=== PATIENT | female | born 1990 | race Caucasian/White ===

== ENCOUNTER 2018-02-21 11:50 | Inpatient (IN) ==
--- NOTE | 2018-02-21 12:10 | PDOC ---
Headache HPI - General Chief Complaint: Headache Stated Complaint: Migraine since sunday Date Seen by Provider: 02/21/18 Time Seen by Provider: 12:01 Source: POSITIVE: Patient Exam Limitations: POSITIVE: No limitations Nurse's Notes Reviewed & Considered: Yes - History of Present Illness Initial Comments: Patient presents to ED with complaint of headache. Patient states that she has history of migraines. Patient states today's headache is the "worst of her life". Patient has seen her local nurse practioner 3 days in a row now and was referred to ED today. patient was given toradol and IM phenergan for the past two days for her headache with minimal relief. Patient states the headache started in frontal region behind her right eye and has now progressed into her occipital region. She is also complaining of neck pain today. She denies fevers/chills. She does report photophobia. Denies R/C/EA/ST. Denies CP/SOB. Denies cough. Reports nausea. Body Location Affected: REPORTS: Head Associated Symptoms: DENIES: Fever, Chills Any Prior Injuries Related to Current Complaint?: No (no trauma) - Patient Home Medications Home Medications: Home Medications Levothyroxine Sodium 0.5 tab PO DAILY tab 11/22/15 - Patient Allergies Allergies/Adverse Reactions: Allergies Allergy/AdvReac Type Severity Reaction Status Date / Time pseudoephedrine HCl Allergy Severe CHEST PAIN Verified 02/21/18 20:33 [From Sudafed] OR TIGHTNESS Past Medical History - ronyen HEENT History: Denies History Cardiovascular History: Denies History Respiratory History: Denies History Gastrointestinal History: Denies History Genitourinary History: Denies History Endocrine History: Hypothyroidism Musculoskeletal History: Denies History Neurological History: Denies History Blood Disorders: Denies History Psychiatric History: Denies History History of Sexually Transmitted Diseases: No Female Reproductive History: Endometriosis Cancer History: Denies History History of MDRO: No History of Other Communicable Diseases: No Alcohol Use: None In the Past 12 Months, Have Used or Abuse Any Substance: None Previous Surgical History: Yes Type / Date of Surgery: 11/09/15 LEFT SHOULDER SLAP REPAIR/T&A/ MADALYN/ ENDOMETRIAL ABLATION X 2/L SHOULDER SCOPE/EGD Anesthesia Reactions: No Malignant Hyperthermia: No Significant Family History: Heart disease, Cancer, Diabetes ROS - Limitations ROS Limitations: No Limitations Constitution: DENIES: Chills, Fever, Diaphoresis, Weakness Cardiovascular: REPORTS: Denies Cardiac Symptoms Respiratory: REPORTS: Denies Resp Symptoms Neurological: REPORTS: Headache, Other (photophobia. Phonophobia). DENIES: Confusion, Dizziness, Seizure Activity, Facial Asymmetry, Dysphagia Gastrointestinal: REPORTS: Nausea, Vomitting. DENIES: Abdominal Pain, Diarrhea Endocrine: REPORTS: Denies Symptoms Musculoskeletal: REPORTS: Denies MS Symptoms Genitourinary: REPORTS: Denies Symptoms Eyes: REPORTS: Denies Symptoms ENT: REPORTS: Denies Symptoms Skin: REPORTS: Denies Skin Symptoms Lympathic: REPORTS: Denies Lympathic Symptoms Immunologic: POSITIVE: Denies Symptoms Psychiatric: POSITIVE: Anxiety. NEGATIVE: Depression, Suicidal Thoughts Headache Exam - General Appearance General Appearance: POSITIVE: Alert, Cooperative, Moderate Distress - HEENT Head / Face: POSITIVE: Atraumatic, Normal Inspection, No Facial Swelling. NEGATIVE: Head Injury, Ecchymosis, Swelling, Tenderness Eyes: POSITIVE: Inspection Normal, PERRL, EOM's Intact, Eyelids Uninjured, No Nystagmus, No Globe Trauma Ears: POSITIVE: Ears Normal Inspection, TM Normal Inspection Nose: POSITIVE: Inspection Normal, No Apparent Trauma, Nares Normal, No CSF Leak Oropharynx: POSITIVE: External Inspection Nml, Pharynx Inspect. Nml, Airway Intact, Voice Normal, No Oral Injury, Lips Normal, Gums Normal, No Drooling, No Thrush, Dry Mucous Membranes Dental: POSITIVE: No Dental Injury - Pupil Size Pupil Size: 4 mm: Bilateral - Neck Neck: POSITIVE: Normal Inspection, Stiff Neck. NEGATIVE: Meningismus - Respiratory / CVS Respiratory / CVS: POSITIVE: Chest Non-Tender, No Respiratory Distress, Heart Sounds Normal, Regular Rate/Rhythm, Breath Sounds Normal Peripheral Pulses: Radial (R): 2+, Radial (L): 2+, Dorsalis-pedis (R): 2+, Dorsalis-pedis (L): 2+ - Abdomen Abdomen: Soft: (All Quadrants), Normal Bowel Sounds: (All Quadrants), Denies Tenderness: (All Quadrants), No Splenomegaly: (All Quadrants), No Hepatomegaly: (All Quadrants), No Guarding: (All Quadrants), No Rebound: (All Quadrants) - Skin Skin: POSITIVE: Intact - Extremities Extremity: Non-Tender: (All Extremities), Normal ROM: (All Extremities), Normal Inspection: (All Extremities) - Neuro / Psych Higher Functions: POSITIVE: Alert, Oriented x3, Normal Speech, Mood Appropriate, Affect Appropriate Cranial Nerves: POSITIVE: Normal As Tested Cerebellar: POSITIVE: Normal As Tested Sensorimotor: POSITIVE: No Motor Deficits, No Sensory Deficits, Reflexes Normal. NEGATIVE: Weakness Procedure - Lumbar Puncture Risks, Benefits, & Alternatives Discussed: Yes Parent / Guardian Consent Obtained: Yes (patient's mother was present for consent and consented to procedure along w) Lumbar Puncture Technique: POSITIVE: Lying, Sterile Technique, L3-4 Lumbar Puncture Color: POSITIVE: Colorless, Clear Lumbar Puncture Lab Results Reviewed: Yes Procedure Note:: The L3-L4 interspace was prepped and draped in the usual sterile fashion using Betadine. The space was anesthetized with 1% lidocaine without epinephrine. After adequate anesthesia was achieved a 22-gauge spinal needle was entered into the spinal column on the first pass. Immediately CSF was returned. Opening pressure was obtained. 4 samples were obtained. Stylette was replaced and the needle was withdrawn. Sterile dressing was placed. Patient tolerated procedure well. Opening pressure was 9 mmHg. Patient was left in supine position for 1 hour after lumbar puncture. Headache Progress - Results Reviewed by me Xrays/CTs/US Reviewed by me: Yes Discussed with Radiologist: No Radiology Findings: Normal Head CT. No ICH. No aneursym. Lab Results Reviewed by Me: Yes CBC and BMP: 02/21/18 12:15 02/21/18 12:15 Lab Results:: Laboratory Results 02/21/18 02/21/18 02/21/18 12:15 12:15 12:15 WBC 12.01 H RBC 4.83 Hgb 14.9 Hct 43.9 MCV 90.9 MCH 30.8 MCHC 33.9 RDW Std Deviation 41.2 RDW Coeff of Ade 12.6 Plt Count 245 MPV 11.1 Immature Gran % (Auto) 0.2 Neut % (Auto) 71.5 Lymph % (Auto) 19.8 Harper % (Auto) 7.2 Eos % (Auto) 1.1 Baso % (Auto) 0.2 Immature Gran # (Auto) 0.02 Neut # (Auto) 8.59 Lymph # (Auto) 2.38 Harper # (Auto) 0.87 H Eos # (Auto) 0.13 Baso # (Auto) 0.02 WBC Morphology Comment Normal morphology Plt Morphology Comment Normal morphology RBC Morph Comment Normal morphology Sodium 142 Potassium 4.0 Chloride 105 Carbon Dioxide 28 Anion Gap 9 BUN 14 Creatinine 0.7 Estimated GFR > 60 BUN/Creatinine Ratio 20.00 Glucose 89 Calculated Osmolality 293.0 H Calcium 9.5 Serum HCG, Qual Negative CSF Volume CSF Appearance CSF Color CSF WBC CSF RBC CSF Neutrophils CSF Lymphocytes CSF Mononuclear WBCs CSF Glucose CSF Total Protein HIV 1&2 Antibody Rapid HIV P24 Antigen 02/21/18 02/21/18 12:15 16:55 WBC RBC Hgb Hct MCV MCH MCHC RDW Std Deviation RDW Coeff of Ade Plt Count MPV Immature Gran % (Auto) Neut % (Auto) Lymph % (Auto) Harper % (Auto) Eos % (Auto) Baso % (Auto) Immature Gran # (Auto) Neut # (Auto) Lymph # (Auto) Harper # (Auto) Eos # (Auto) Baso # (Auto) WBC Morphology Comment Plt Morphology Comment RBC Morph Comment Sodium Potassium Chloride Carbon Dioxide Anion Gap BUN Creatinine Estimated GFR BUN/Creatinine Ratio Glucose Calculated Osmolality Calcium Serum HCG, Qual CSF Volume 4ml CSF Appearance Clear CSF Color Colorless CSF WBC 0.011 H CSF RBC 0.001 CSF Neutrophils 0 CSF Lymphocytes 100 CSF Mononuclear WBCs 0 CSF Glucose 46 L CSF Total Protein 115 H HIV 1&2 Antibody Rapid Negative HIV P24 Antigen Negative - Patient's Progress Pain Medication Addressed: POSITIVE: Yes School/Work Release Addressed: POSITIVE: Not Applicable Re-Examine Comment: Patient continues to complain of headache despite initial migraine cocktail therefore patient was given IV dilaudid. This did minimally help her headache. Labs showed mild leukocytosis. Re-Examine Comment: Patient continues to complain of headache despite narcotic treatment. She is also complaining of neck pain and stiffness. She has trouble putting her chin on her chest. Therefore I recommended LP. I discussed risks and benefits and she consented to procedure. LP went smoothly and CSF was easily obtained and sent for analysis. Patient requested more pain medication and was given another dose of dilaudid. She became hypoxic after this dose and was placed on oxygen. After a short time she was again complaining of headache pain and was therefore given IV toradol. Re-Examine Comment: Case discussed with Dr. Cutler of infectious disease at [facility]. He recommended enterovirus & HSV csf testing. He also recommended HIV testing. He recommended treatment with acyclovir, rocephin 2 gm every 12 hours and vancomycin 15mg/kg. He recommended continuing antibiotics for 1st 48 hours of cultures and if no bacterial source grew that the antibiotics could be discontinued after that time. Status: POSITIVE: Unchanged MDM / ED Course: Patient presented the emergency Department complaints of headache. She has a history of migraines and was treated as an outpatient for the past 2 days. This has been the worst headache of her life and therefore a head CT with and without contrast was performed. CT the head showed no acute findings. Labs showed mild leukocytosis. The patient did not respond to traditional migraine treatments and was therefore given narcotics. She continued to complain of headache and there is therefore given Dilaudid. She is complaining of neck pain with her headache and has difficulty moving her head and placing her chin on her chest. I subsequently recommended lumbar puncture. I performed consent with patient. I subsequently performed a lumbar puncture and patient tolerated this well. Opening pressure was 9 mmHg. And CSF was sent for analysis. I reviewed CSF findings which showed elevated white blood cell count at 110 which was all lym phocytes. Patient's glucose was decreased and protein was increased in the CSF. This was consistent with viral meningitis. I subsequently discussed the case with Dr. Bray, hospitalist, who requested that I consult infectious disease at [facility]. I subsequently discussed the case with Dr. Cutler of the infectious disease service. He recommended the patient have enterovirus and HSV testing of the CSF. He recommended HIV testing. He recommended giving the patient acyclovir and Rocephin 2 g every 12 and vancomycin 15 mg/kg. He recommended continuing antibiotic therapy for 48 hours of growth of the CSF culture. If no bacteria grew out of the CSF culture at 48 hours the antibiotics could be stopped at that time. The case was further discussed with Dr. Bray and the patient was subsequently admitted to the medical floor and stable but guarded condition. She expressed understanding of her results and recommendation for admission and was in agreement with plan. Her mother also accompanied her today and also express understanding of results and plan. - Consult Consult (If Yes, Name of Consulting MD & Time Called): Yes (Dr Bray @ [phone]) Consulting MD will see pt:: POSITIVE: Other (Requested I consult infectious disease prior to admission) Patient Care Time - Estimated PCT Patient Care Time (In Minutes): 120 Critical Care Note - Critical Care Note Total Time (mins): 35 (excluding any other billable procedures) Critical Care: NOUGAT [employer] MACHINE Failure Risk, Life Threatening Scenario, Limb Threatening Scenario, Multiple Organ Systems Threatened / At Risk, Interpretation of Labs - Management Adjusted Based on Results History Source: Patient, Family Discharge Clinical Impression: Headache, Meningitis, viral, Nausea & vomiting, Dehydration Discharge Disposition: Admit to Inpatient Condition: Stable Follow Up With: CASPER CASTILLO [Primary Care Provider] - Care Transferred To: Dr. Bray Date Decision to Admit to Inpatient: 02/21/18 Time Decision to Admit to Inpatient: 18:49
[2018-02-21] MEDS ORDERED: Sodium Chloride 0.9% 1,000 ML PRIMARY IV ONE (12:30)
[2018-02-21] MEDS ORDERED: PROMETHAZINE 25 MG/1 ML VIAL IM ONE (12:30)
[2018-02-21] MEDS ORDERED: DEXAMETHASONE PF 10 MG/1 ML VIAL IVP ONE (12:30)
[2018-02-21] MEDS ORDERED: diphenhydrAMINE 50 MG/1 ML VIAL IVP ONE (12:30)
[2018-02-21 12:36] LABS: BASOPHILS # (AUTO) 0.02 10*3/UL; BASOPHILS % (AUTO) 0.2 % (0-1); EOSINOPHILS # (AUTO) 0.13 10*3/UL; EOSINOPHILS % (AUTO) 1.1 % (0-8); Hematocrit [HCT] 43.9 % (37.0-47.0); Hemoglobin [HGB] 14.9 g/dL (12.0-16.0); LYMPHOCYTES # (AUTO) 2.38 10*3/uL; MEAN CORPUSCULAR HEMOGLOBIN 30.8 PG (27-31); MEAN CORPUSCULAR HGB CONC 33.9 g/dL (33-37); MEAN CORPUSCULAR VOLUME 90.9 FL (81-99); MEAN PLATELET VOLUME 11.1 FL (7.4-12.2); MONOCYTES # (AUTO) 0.87 10*3/UL (0.3-0.8); MONOCYTES % (AUTO) 7.2 % (5-15); NEUTROPHILS # (AUTO) 8.59 10*3/UL; NEUTROPHILS % (AUTO) 71.5 % (50-80); RED BLOOD COUNT 4.83 10^6/uL (4.20-5.40)
[2018-02-21 12:37] LABS: PLATELET MORPHOLOGY COMMENT NORMAL MORPHOLOGY (NORM); RBC MORPHOLOGY COMMENT NORMAL MORPHOLOGY (NORM); WBC MORPHOLOGY COMMENT NORMAL MORPHOLOGY (NORM)
[2018-02-21 12:42] LABS: BLOOD UREA NITROGEN 14 mg/dL (7-22)
[2018-02-21] MEDS ORDERED: HYDROmorphone 2 MG/1 ML IVP ONE ×3 (14:40→20:10)
--- NOTE | 2018-02-21 14:40 | DI ---
CT HEAD SCAN WITHOUT AND WITH IV CONTRAST, 02/21/2018 12:30 PM : Clinical History: The patient experienced the worst headache in her life. Previous Exam: None at this facility. Technique: Performed from the foramen magnum to vertex without and with IV contrast. Contrast Volume: 75 mL of Isovue 300. 4th Ventricle: Normal. 3rd Ventricle: Normal. Lateral Ventricles: Normal. Cerebrum: Normal. No evidence of an acute subarachnoid or intraparenchymal hemorrhage on the noncontr ast scans. No enhancing lesion. [place]: The left vertebral artery is the dominant vessel. There is no aneurysm arising from the AICA or PICA branches and there is no basilar tip aneurysm. No discernible posterior communicati ng arteries are identified. The anterior communicating artery is atretic but normal. The A1-A2 and M1 -M3 branches bilaterally are normal. No aneurysms are identified. Cerebellum: Normal. No cerebellopontine angle mass. No enhancing lesion. Brainstem: Normal. No enhancing lesion. Atrophy: No atrophy. Extracerebral Mantles/Midline Shift: No extracerebral lesion or midline shift. No enhancing dural les ion. Sinuses: Normal. Skull: Intact. READIN. Normal pre- and post-contrast enhanced CT head scan. There is no evidence of an acute intracrania l hemorrhagic focus. 2. Normal [place]. No aneurysm is identified
[2018-02-21 17:39] LABS: APPEARANCE, CSF CLEAR (CLEAR); COLOR, CSF COLORLESS (COLOR)
[2018-02-21] MEDS ORDERED: cefTRIAXone Inj 2 GM in Sodium Chloride 0.9% 100 ML IV ONE (18:43)
[2018-02-21] MEDS ORDERED: KETOROLAC 15 MG/1 ML VIAL IVP ONE (18:45)
[2018-02-21 19:15] LABS: HIV ANTIBODY NEGATIVE (N); HIV-1 P24 ANTIGEN NEGATIVE (N)
[2018-02-21] MEDS ORDERED: ONDANSETRON 4 MG/2 ML VIAL IVP PRN (21:12)
[2018-02-21] MEDS ORDERED: LIDOCAINE W/ SODIUM BICARB 0.5 ML SYR SUBD PRN (21:12)
[2018-02-21] MEDS ORDERED: CALCIUM CARBONATE 500 MG (TUMS) CHEWABLE TABLET PO PRN (21:12)
[2018-02-21] MEDS ORDERED: ACETAMINOPHEN 325 MG TABLET PO PRN (21:12)
[2018-02-21] MEDS ORDERED: DOCUSATE 100 MG CAPSULE PO PRN (21:12)
--- NOTE | 2018-02-21 21:19 | PDOC ---
HPI - History of Present Illness Date of Service: 02/21/18 Time of Service: 21:00 Chief Complaint: Headaches of 2 days' duration History of Present Illness: This is a 27 years old female with medical history significant for history of hypothyroidism, endometriosis for which she had Lupron injection the last one was back in August this year and also history of migraine headaches who presented to the to the hospital with history of headache that started on Sunday. She said the headache started on Sunday was gradual felt in the frontal area more around the right eye in addition she did describe that she had blurry vision on the left eye that day she had nausea she went to her primary she was given Toradol and antiemetics. on Sunday she continued to have headache had another shot of toradol today she had also the same headache and went to her primary in she was sent to the ER. In the ER she received multiple medications for the headaches. She had a CT of the head which was negative. She did report also stiffness in her neck so she had an LP done which showed WBC count of 11 in the CSF with her percent being 100% lymphocytes, protein was elevated at 114, CSF sugar was 46 opening pressure was 9. The case was discussed with the infectious disease in [place] who suggested IV antibiotics in addition to antiviral until we have culture results. She rates her headache currently 7 out of 10. Mainly in the frontal area and also goes to the back of the head no vision issues today. She said the vision problem that she had was only on Sunday. She feels weak but no focal weakness. She did not vomit. Her initial headache when she came into the ER was 7-8. There was no history of chills or fever. She did report that 2 weeks ago she had a swelling seems to be in the parotid area she was given a prescription for antibiotics by her primary Past Medical History Medical History: 1. Hypothyroidism. 2. Endometriosis status post surgery before and status post Lupron injections. There is a plan in the future for hysterectomy. Family History: Reviewed an Not Pertinent Past Social History: Does not smoke, does not drink nor drugs. 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 Lives with her and 2 children. Tobacco Use: Never Smoker In the Past 12 Months, Have Used or Abuse Any of the Following Substance: None Alcohol Use: None Medication / Allergies Home Medications: Home Medications Medication Instructions Recorded Confirmed Type Levothyroxine Sodium 0.5 tab PO DAILY tab 11/22/15 02/21/18 History Allergies/Adverse Reactions: Allergies Allergy/AdvReac Type Severity Reaction Status Date / Time pseudoephedrine HCl Allergy Severe CHEST PAIN Verified 02/21/18 20:33 [From Sudafed] OR TIGHTNESS Review of Systems - Review of Systems All Systems: Reviewed & No Additional Complaints Except as Stated Exam - Vitals Vital Signs: Vital Signs Temperature 98.0 F Temperature Source Temporal Artery Scan Pulse Rate [Apical] 88 Pulse Rate [Pulse Oximeter 87 Right] Pulse Rate 81 Respiratory Rate 18 Blood Pressure [Left Arm] 136/97 Blood Pressure 110/81 Pulse Ox 98 Oxygen Flow Rate 2 Oxygen Delivery Method Nasal Cannula Height 5 ft 9 in Weight 230 lb - General General Appearance: Cooperative, Obese Additional General Exam Details: Looks tired. - Head Head Exam: Normal Inspection - Eye Eye Exam: POSITIVE: Normal Appearance - ENT ENT Exam: POSITIVE: Normal Exam - Neck Additional Neck Exam Details: There is some terminal stiffness. Also some superficial tenderness neck area in the back of the head. - Respiratory Respiratory Exam: POSITIVE: Clear to Auscultation - Bilaterally - Cardiovascular Cardiovascular Exam: POSITIVE: RRR - GI/Abdominal GI/Abdominal Exam: POSITIVE: Normal Bowel Sounds, Non Tender, Non Distended, Soft, No Organomegaly - Rectal Rectal Exam: POSITIVE: Deferred - External Exam: POSITIVE: Deferred - Extremities Extremities Exam: POSITIVE: Normal Inspection - Back Back Exam: POSITIVE: Normal Inspection - Neurological Neurological Exam: POSITIVE: Alert, Oriented x 3, CN II-XII Intact, No Facial Droop, Speech Intact / Clear, Moves All Extremities Equally - Psychiatric Psychiatric Exam: POSITIVE: Normal Affect - Integumentary Integumentary Exam: POSITIVE: Normal Color Results - Labs CBC and BMP: 02/22/18 05:00 02/21/18 12:15 - Imaging Status: Report Reviewed by Me (CT 1. Normal pre- and post-contrast enhanced CT head scan. There is no evidence of an acute intracranial hemorrhagic focus. 2. Normal [place]. No aneurysm is identified) Assessment and Plan - Patient Problems (1) Meningitis, viral Current Visit: Yes Status: Acute Comment: Findings suggestive of viral meningitis. I think though we'll follow the recommendation of ID with antibiotic therapy until we have culture result. Double check with lab whether they sent the herpes simplex CSF. Will write for symptomatic treatment For the headache. I think though I will order also an MRV and MRI tomorrow to rule out thrombosis. Though seems unlikely. I did speak with Dr. Bonilla he reviewed the CT he thinks the venous system seemed to be patent. But MRV sensitivity is higher. Code(s): A87.9 - Viral meningitis, unspecified (2) Hypothyroidism Current Visit: Yes Status: Acute Comment: Continue same med Code(s): E03.9 - Hypothyroidism, unspecified
[2018-02-21] MEDS: HYDROmorphone 2 MG/1 ML IVP PRN (21:58)
[2018-02-22] MEDS: HYDROmorphone 2 MG/1 ML IVP PRN ×4 (02:34→20:10)
[2018-02-22 05:21] LABS: BASOPHILS # (AUTO) 0.01 10*3/UL; BASOPHILS % (AUTO) 0.1 % (0-1); EOSINOPHILS # (AUTO) 0 10*3/UL; EOSINOPHILS % (AUTO) 0 % (0-8); Hematocrit [HCT] 40.6 % (37.0-47.0); Hemoglobin [HGB] 13.7 g/dL (12.0-16.0); LYMPHOCYTES # (AUTO) 1.01 10*3/uL; MEAN CORPUSCULAR HEMOGLOBIN 30.5 PG (27-31); MEAN CORPUSCULAR HGB CONC 33.7 g/dL (33-37); MEAN CORPUSCULAR VOLUME 90.4 FL (81-99); MEAN PLATELET VOLUME 11.3 FL (7.4-12.2); MONOCYTES # (AUTO) 0.73 10*3/UL (0.3-0.8); MONOCYTES % (AUTO) 3.7 % (5-15); NEUTROPHILS # (AUTO) 18.05 10*3/UL; NEUTROPHILS % (AUTO) 90.8 % (50-80); RED BLOOD COUNT 4.49 10^6/uL (4.20-5.40)
[2018-02-22] MEDS: LEVOTHYROXINE 25 MCG TABLET PO SCH (05:31)
[2018-02-22] MEDS: cefTRIAXone Inj 2 GM in Sodium Chloride 0.9% 100 ML IV SCH ×2 (05:32→17:29)
[2018-02-22 06:10] LABS: PLATELET MORPHOLOGY COMMENT NORMAL MORPHOLOGY (NORM); RBC MORPHOLOGY COMMENT NORMAL MORPHOLOGY (NORM); WBC MORPHOLOGY COMMENT NORMAL MORPHOLOGY (NORM)
--- NOTE | 2018-02-22 06:47 | DI ---
MRI BRAIN SCAN WITHOUT IV CONTRAST, 02/22/2018 7:00 AM: Clinical History: Severe persistent headaches. Prior Exam: None at this facility. Comparison Exam: CT head scan without and with IV contrast, 2017. Sequences: Sagittal T1; Axial KHADIJAH T2 and FLAIR. Axial diffusion weighted images with ADC mapping. 4th Ventricle: Normal. 3rd Ventricle: Normal. Lateral Ventricles: Normal. Cerebrum: Normal. No evidence of an acute hemorrhagic or bland infarct. Cerebellum: Normal. No cerebellopontine angle mass. Cerebellar Tonsils: Normal position. Brainstem: Normal. Atrophy: No atrophy. Extracerebral Mantles/Midline Shift: No extracerebral mantle or dural lesion. No midline shift. There is a 2 x 10 x 15 mm hyperintensity on all sequences located in the diploic space of the posterior as pect of the left orbit. This is clearly extra-axial and extraconal in origin. This is rather unlikely to be the source of the patient's symptoms. Sinuses: Normal. Readin. Noncontrast MRI scans of the brain are normal. 2. Diffusion-weighted imaging with ADC mapping is normal. 3. There is a small 2 x 10 x 15 mm hyperintense lesion apparently in the diploic space of the director voice ior aspect of the right orbital roof. This is extra-axial and extraconal and causes no extrinsic pres sure either on the brain or the orbit. The etiology of this lesion is uncertain, but due to its locat ion and lack of extension to either the orbit or the brain, and is felt to be rather unlikely to be t he source of the patient's symptoms.
[2018-02-22] MEDS ORDERED: Vancomycin-PHA to Dose IV PRN (07:00)
[2018-02-22] MEDS: HYDROcodone-APAP 5 MG -325 MG TABLET PO PRN ×3 (07:08→17:30)
[2018-02-22] MEDS: KETOROLAC 15 MG/1 ML VIAL IVP PRN ×2 (07:08→16:08)
--- NOTE | 2018-02-22 07:20 | DI ---
MR VENOUS ANGIOGRAM OF THE BRAIN, 02/22/2018 7:00 AM: Clinical History: Severe persistent headaches. Previous Exam: Noncontrast MRI brain scan, 02/22/2018. Pre-and postcontrast CT head scans, 02/21/2018 . Technique: Noncontrast sagittal 3-D MR images are obtained. These are reformatted into a conventional 3-D angiogram. The 3-D angiogram shows patency of the superior sagittal sinus as well as the right and left transver se sinuses. The right transverse sinus is larger than the left side. The straight sinus is diminutive in size. Review of the CT head scan shows that both internal cerebral veins and the vein of Gil ar e patent. The straight sinus on the CT scan is also diminutive in size without evidence of a thrombus . The straight sinus drains predominantly into the left transverse sinus. Reading: There is no evidence of thrombosis of the superior sagittal sinus or transverse sinuses. Straight sin us is diminutive in size but is patent both on the MRI venous angiogram and CT head scan.
[2018-02-22] MEDS ORDERED: CYCLOBENZAPRINE 10 MG TABLET PO ONE (12:06)
[2018-02-22] MEDS ORDERED: FLUCONAZOLE 100 MG TABLET PO ONE (12:07)
[2018-02-22] MEDS ORDERED: diphenhydrAMINE 25 MG CAPSULE PO PRN (12:30)
--- NOTE | 2018-02-22 12:46 | PDOC(PROG) ---
Date of Service: 02/22/18 Time of Service: 13:00 Interval History: Subjective She still have the headache mainly in the back of the head. Denying nausea. She did eat. No vision issues. Objective : Data - Labs CBC and BMP: 02/22/18 05:00 02/21/18 12:15 Objective : Exam - General General Appearance: No Acute Distress, Cooperative - Head Head Exam: Normal Inspection - Eye Eye Exam: Normal Appearance - ENT ENT Exam: Normal Exam - Neck Additional Neck Exam Details: There is some still some stiffness and tenderness of the back of the neck. There is terminal neck stiffness. - Respiratory Respiratory Exam: Clear to Auscultation - Bilaterally - Cardiovascular Cardiovascular Exam: RRR - GI/Abdominal GI/Abdominal Exam: Normal Bowel Sounds, Non Tender, Non Distended, Soft, No Organomegaly - Rectal Rectal Exam: Deferred - External Exam: Deferred - Extremities Extremities Exam: Normal Inspection - Back Back Exam: Normal Inspection - Neurological Neurological Exam: Alert, Oriented x 3, CN II-XII Intact, No Facial Droop, Speech Intact / Clear, Moves All Extremities Equally - Psychiatric Psychiatric Exam: Normal Affect Assessment and Plan - Patient Problems (1) Meningitis, viral Current Visit: Yes Status: Acute Comment: Looks viral meningitis picture so far everything is negative. The culture is negative. I think will follow the recommendation of ID if things are still negative by tomorrow probably discharge home tomorrow. The MRI that she had showed no evidence of further thrombosis. On the MRI Dr. Bonilla put the presence of hyperintense lesion in the right orbit I did speak with Dr. Horvath who reviewed the MRI and he thinks this is a retention cyst of no clinical significance. I think the leukocytosis is secondary to the dexamethasone that she received yesterday Code(s): A87.9 - Viral meningitis, unspecified (2) Hypothyroidism Current Visit: Yes Status: Acute Comment: Same med Code(s): E03.9 - Hypothyroidism, unspecified
[2018-02-22] MEDS: Lactated Ringers 1,000 ML PRIMARY IV SCH (16:05)
[2018-02-22] MEDS: CYCLOBENZAPRINE 10 MG TABLET PO PRN ×2 (17:30→20:10)
[2018-02-23] MEDS: KETOROLAC 15 MG/1 ML VIAL IVP PRN (01:47)
[2018-02-23] MEDS: Lactated Ringers 1,000 ML PRIMARY IV SCH (01:47)
[2018-02-23] MEDS: LEVOTHYROXINE 25 MCG TABLET PO SCH (05:08)
[2018-02-23] MEDS: cefTRIAXone Inj 2 GM in Sodium Chloride 0.9% 100 ML IV SCH (05:08)
[2018-02-23] MEDS: CYCLOBENZAPRINE 10 MG TABLET PO PRN (05:14)
[2018-02-23 05:27] LABS: BASOPHILS # (AUTO) 0.02 10*3/UL; BASOPHILS % (AUTO) 0.2 % (0-1); EOSINOPHILS % (AUTO) 1.2 % (0-8); Hematocrit [HCT] 36.4 % (37.0-47.0); Hemoglobin [HGB] 11.8 g/dL (12.0-16.0); MEAN CORPUSCULAR HEMOGLOBIN 30.3 PG (27-31); MEAN CORPUSCULAR HGB CONC 32.4 g/dL (33-37); MEAN CORPUSCULAR VOLUME 93.3 FL (81-99); MEAN PLATELET VOLUME 11.3 FL (7.4-12.2); MONOCYTES # (AUTO) 0.57 10*3/UL (0.3-0.8); MONOCYTES % (AUTO) 6.6 % (5-15); NEUTROPHILS # (AUTO) 5.35 10*3/UL; NEUTROPHILS % (AUTO) 61.8 % (50-80)
[2018-02-23 05:32] LABS: PLATELET MORPHOLOGY COMMENT NORMAL MORPHOLOGY (NORM); RBC MORPHOLOGY COMMENT NORMAL MORPHOLOGY (NORM); WBC MORPHOLOGY COMMENT NORMAL MORPHOLOGY (NORM)
[2018-02-23 05:44] LABS: BLOOD UREA NITROGEN 22 mg/dL (7-22); BUN/CREATININE RATIO 36.66 (6-20)
--- NOTE | 2018-02-23 08:59 | DCSUMMARY ---
Hospitalization Summary Admit Date: 02/21/2018 Discharge Date: 02/23/18 Hospital Course: Discharge diagnoses 1. Viral meningitis 2. Hypothyroidism 3. History of migraines 4. History of endometriosis Hospital course This is a 27 years old female medical history significant for history of hy pothyroidism, endometriosis for which she had Lupron injection and history of migraine headaches who presented to the hospital with history of headache that started 2 days prior to admission. The headache started in the frontal area was gradual felt around the right eye in addition she did describe some blurry vision in the left eye and nausea she went to her primary she was givien Toradol and antiemetics. On Sunday she continued to have the headache had another shot of Toradol and on the day she presented to the hospital the headache persisted she went to her primary and was sent to the ER. In the ER she had multiple medication for the headache in addition a CT scan was done which was negative. She did report stiffness in her neck so she had an LP. LP did show an elevated white count of 11, 100% were lymphocytes protein was elevated at 114 and CSF sugar was 46 the opening pressure was 9. The Case was discussed infectious disease in [place] who suggested IV antibiotics waiting on culture results. CSF panel came negative. The panel does include herpes simplex and that was negative. Gram stain was negative. CSF Culture remained negative blood culture remained negative. We continued antibiotics and as the growth remained negative for 2 days those were discontinued. On the day of discharge she was doing much better she still have some achiness but it's much better than before. Her exam is unremarkable the stiffness seem to be mostly resolved. We thought she could be discharged home and follow-up with her primary. She did have also an MRI of the brain which was negative except for the incidental finding of mucous retention cyst , the MRV also was negative. Discharge instruction Diet regular Activity as tolerated Medications Current Medication(s) Medication Instructions Recorded Confirmed Type Levothyroxine Sodium 0.5 tab PO DAILY tab 11/22/15 02/21/18 History Cyclobenzaprine HCl [Flexeril] 10 mg PO TID PRN #12 tab 02/23/18 Rx Follow-up with PCP in 1-2 weeks Condition at discharge was stable for discharge Exam - Vitals Vital Signs: Vital Signs Temperature 97.7 F Temperature Source Oral Pulse Rate [Apical] 74 Pulse Rate [Pulse Oximeter 62 Right] Pulse Rate 81 Respiratory Rate 20 Blood Pressure [Left Arm] 108/63 Blood Pressure 110/81 Pulse Ox 90 Oxygen Flow Rate 2 Oxygen Delivery Method Room Air Height 5 ft 9 in Weight 240 lb 4.8 oz - General General Appearance: No Acute Distress, Cooperative, Obese - Head Head Exam: Normal Inspection - Eye Eye Exam: POSITIVE: Normal Appearance - ENT ENT Exam: POSITIVE: Normal Exam - Neck Neck Exam: Normal Inspection - Respiratory Respiratory Exam: POSITIVE: Clear to Auscultation - Bilaterally - Cardiovascular Cardiovascular Exam: POSITIVE: RRR - GI/Abdominal GI/Abdominal Exam: POSITIVE: Normal Bowel Sounds, Non Tender, Non Distended, Soft, No Organomegaly - Rectal Rectal Exam: POSITIVE: Deferred - External Exam: POSITIVE: Deferred Exam: POSITIVE: Deferred - Extremities Extremities Exam: POSITIVE: Normal Inspection - Back Back Exam: POSITIVE: Normal Inspection - Neurological Neurological Exam: POSITIVE: Alert, Oriented x 3, CN II-XII Intact, No Facial Droop, Speech Intact / Clear - Psychiatric Psychiatric Exam: POSITIVE: Normal Affect Patient Problems - Patient Problem List (1) Meningitis, viral Current Visit: Yes Status: Acute Code(s): A87.9 - Viral meningitis, unspecified Category: Medical (2) Hypothyroidism Current Visit: Yes Status: Acute Code(s): E03.9 - Hypothyroidism, unspecified Category: Medical
== END 2018-02-23 10:18 | disposition home or self-care (01) | DRG 76 ==
LOC: ER 11:50 → MED/SURG 20:22
PROVIDERS: ADMIT Internal Medicine; ATTEND Internal Medicine